=== PATIENT | male | born 1945 | race African-American/Black ===

== ENCOUNTER 2020-06-20 08:40 | Emergency (ER) | payer OTHER ==
[~2020-06-20] VITALS: Ht 190.5 cm; Wt 87.5 kg
[2020-06-20] MEDS ORDERED: ALLOPURINOL100 MG PO (09:48)
[2020-06-20] MEDS ORDERED: NORVASC10 MG PO (09:48)
[2020-06-20] MEDS ORDERED: CAPZASIN-HP42.5 GM TOP (09:49)
[2020-06-20] MEDS ORDERED: LIPITOR10 MG PO (09:49)
[2020-06-20] MEDS ORDERED: ALL DAY ALLERGY10 M3 PO (09:49)
[2020-06-20] MEDS ORDERED: GLUCOPHAGE500 MG PO (09:50)
== END 2020-06-20 10:40 | disposition short-term general hospital (02) ==
LOC: ED 08:40
DX: J96.90 Respiratory failure, unspecified, unspecified whether with hypoxia or hypercapnia (principal); Z20.828 Contact with and (suspected) exposure to other viral communicable diseases
CPT/HCPCS: 51702; 71045; 80053; 81001; 83605; 83880; 84484; 85025; 85379; 99285-25